=== PATIENT | female | born 1985 | race Caucasian/White ===

== ENCOUNTER → 2016-08-15 | Outpatient (CLI) | payer OTHER ==
[2016-08-15 16:51] LABS: ESTRADIOL 282.3 PG/ML; PROGESTERONE 15.5 NG/ML
== END | disposition home or self-care (01) ==
LOC: M WUC 15:06
PROVIDERS: ATTEND Obstetrics & Gynecology Reproductive Endocrinology
DX: E28.9 Ovarian dysfunction, unspecified (principal)

== ENCOUNTER → 2016-08-18 | Outpatient (CLI) | payer OTHER ==
[2016-08-18 11:48] LABS: ESTRADIOL 242.9 PG/ML; PROGESTERONE 9.9 NG/ML
== END ==
LOC: M LAB 06:39
PROVIDERS: ATTEND Obstetrics & Gynecology Reproductive Endocrinology
DX: E28.9 Ovarian dysfunction, unspecified (principal)

== ENCOUNTER → 2018-10-05 | Outpatient (CLI) | payer BC ==
[2018-10-05 17:30] LABS: APPEARANCE, URINE CLEAR (CLEAR); BACTERIA, URINE AUTO NEGATIVE (NEGATIVE); BILIRUBIN, URINE AUTO NEGATIVE (NEGATIVE); BLOOD, URINE BLOOD NEGATIVE (NEGATIVE); COLOR, URINE YELLOW (YELLOW); GLUCOSE, URINE (UA) AUTO NEGATIVE (NEGATIVE); KETONE, URINE AUTO NEGATIVE (NEGATIVE); LEUKOCYTE ESTERASE, URINE AUTO NEGATIVE (NEGATIVE); NITRITE, URINE AUTO NEGATIVE (NEGATIVE); PROTEIN, URINE AUTO NEGATIVE (NEGATIVE); RBC, URINE AUTO 2 /HPF (0-3); SPECIFIC GRAVITY URINE AUTO 1.012 (1.002-1.035); SQUAMOUS EPITHELIAL CELL UR AU 1 /HPF (0-6); UROBILINOGEN, URINE AUTO 0.2 mg/dL (0.0-2.0); WBC, URINE AUTO 1 /HPF (0-3)
[2018-10-05 17:49] LABS: ALBUMIN 4.5 GM/DL (3.2-5.2); ALT/SGPT 27 U/L (12-78); AMYLASE 40 U/L (25-115); BILIRUBIN,TOTAL 0.5 MG/DL (0.2-1.0); BLOOD UREA NITROGEN 12 MG/DL (7-18); CALCIUM LEVEL 8.7 MG/DL (8.5-10.1); CARBON DIOXIDE LEVEL 28 MEQ/L (21-32); CHLORIDE LEVEL 107 MEQ/L (98-107); CHOLESTEROL LEVEL 187 MG/DL (<200); CHOLESTEROL RISK RATIO 3.666 (<5); CREATININE FOR GFR 0.66 MG/DL (0.55-1.30); GLOMERULAR FILTRATION RATE > 60.0 (>60); GLUCOSE, FASTING 82 MG/DL (70-100); HCG, SERUM QUANTITATIVE < 1.0 MIU/ML; HDL CHOLESTEROL 51 MG/DL (>40); LDL CHOLESTEROL 122 MG/DL (<100); LIPASE 121 U/L (73-393); NON-HDL-C 136 MG/DL; POTASSIUM SERUM 4.1 MEQ/L (3.5-5.1); SODIUM LEVEL 140 MEQ/L (136-145); TOTAL PROTEIN 7.9 GM/DL (6.4-8.2); TRIGLYCERIDES LEVEL 69 MG/DL (<150)
[2018-10-05 17:54] LABS: BASO # 0.1 10^3/uL (0.0-0.2); BASO % 0.8 % (0.0-1.0); EOS # 0.1 10^3/uL (0.0-0.50); EOS % 1.3 % (0.0-3.0); HEMOGLOBIN 13.3 g/dl (12.0-15.5); LYMPH # 1.3 10^3/uL (1.5-4.5); LYMPH % 21.1 % (24.0-44.0); MEAN CORPUSCULAR HGB CONC 33.3 g/dl (32.0-36.5); MEAN CORPUSCULAR VOLUME 87.1 fl (80.0-96.0); MONO # 0.4 10^3/uL (0.0-0.8); MONO % 6.9 % (0.0-5.0); NEUTROPHILS # 4.4 10^3/uL (1.8-7.7); NEUTROPHILS % 69.7 % (36.0-66.0); PLATELET COUNT, AUTOMATED 209 10^3/uL (150-450); RED BLOOD COUNT 4.59 10^6/uL (4.00-5.40); WHITE BLOOD COUNT 6.4 10^3/uL (4.0-10.0)
== END ==
LOC: M LAB 16:35
PROVIDERS: ATTEND Nurse Practitioner Family
DX: R10.84 Generalized abdominal pain (principal); Z13.220 Encounter for screening for lipoid disorders

== ENCOUNTER → 2018-10-11 | Outpatient (CLI) | payer BC ==
--- NOTE | 2018-10-12 15:01 | REP ---
Clinical: Generalized abdominal pain. Technique: Axial noncontrast images from the lung bases to the pubic symphysis with coronal and sagittal re-formations. Comparison: None. Findings: Lung bases are clear. Liver, spleen, pancreas, gallbladder, bilateral adrenal glands and kidneys are normal for noncontrast evaluation. The enteric system is without obstruction or acute inflammatory process. Normal terminal ileum and appendix identified in the right lower quadrant. Pelvis demonstrates normal bladder and age-appropriate uterus/adnexa. A 1.5 mm calculus is identified in the left hemipelvis which likely represents small phlebolith but nonobstructed ureteral calculus cannot be excluded and should be correlated with physical examination and urinalysis. No ascites. No free air. No adenopathy. Abdominal aorta without aneurysm. Musculoskeletal structures are intact. Impression: 1. No acute abdominopelvic pathology appreciated. 2. 1.5 mm calculus in the left ern[place] pelvis in the region of the distal ureter/UVJ likely represents phlebolith based on the lack of hydroureteronephrosis and symptoms, but correlation with urinalysis and physical examination may be warranted. Electronically Signed by Ubaldo Rai MD 10/12/2018 02:53 P
== END ==
LOC: M RAD 16:01
PROVIDERS: ATTEND Nurse Practitioner Family
DX: R10.84 Generalized abdominal pain (principal)

== ENCOUNTER → 2019-05-04 | Outpatient (CLI) | payer BC ==
--- NOTE | 2019-05-04 08:23 | REP ---
Clinical: Right upper quadrant pain. Technique: Real time mccoy scale ultrasound examination using curved array transducer. Findings: Liver and pancreas are normal in contour, size, echogenicity without focal hepatic or pancreatic lesion identified. Gallbladder is without wall thickening or pericholecystic fluid. A small amount of layering sludge cannot be excluded. No biliary ductal dilatation is appreciated and the common bile duct measures 5.7 mm diameter. The right kidney is normal in reniform shape without hydronephrosis and measures 11.0 x 5.9 x 5.7 cm. No ascites in the visualized right upper quadrant. Impression: 1. Essentially unremarkable examination. Small amount of layering sludge within the gallbladder cannot be excluded. Electronically Signed by Ubaldo Rai MD 05/04/2019 08:14 A
== END ==
LOC: M RAD 06:30
PROVIDERS: ATTEND Internal Medicine Gastroenterology
DX: R10.9 Unspecified abdominal pain (principal)

== ENCOUNTER → 2019-05-12 | Outpatient (CLI) | payer BC ==
--- NOTE | 2019-05-12 10:56 | REP ---
Hepatobiliary scan and gallbladder ejection fraction: History: Abdomen pain Technique: 6.6 mCi of technetium-99m mebrofenin was injected and sequential anterior images are acquired. 65 minutes after the mebrofenin injection, the patient consumed 8 ounces Ensure and an additional 60 minutes of imaging was acquired. Regions of interest are plotted around the gallbladder. Findings: The initial hepatocellular parenchymal uptake phase is normal and homogeneous. Intra- and extra-hepatic bile ducts are labeled by the 10 -minute image. The gallbladder is first labeled on the 10 -minute image. There is normal washout from the liver parenchyma into the gallbladder and small intestine on subsequent images. The gallbladder ejection fraction is 56 %. Values greater than 35 % are considered normal with this technique. Impression: Normal hepatobiliary scan and normal gallbladder ejection fraction. Electronically Signed by Kristopher Odom MD 05/12/2019 10:47 A
== END ==
LOC: M RAD 07:54
PROVIDERS: ATTEND Internal Medicine Gastroenterology
DX: R10.11 Right upper quadrant pain (principal)
CPT/HCPCS: 78227; A9537; J2805

== ENCOUNTER → 2020-03-01 | Outpatient (CLI) | payer BC | LOC: M WUC 08:23 | PROVIDERS: ATTEND Obstetrics & Gynecology | DX: N91.2 Amenorrhea, unspecified (principal) ==

== ENCOUNTER 2020-03-31 11:41 | Emergency (ER) | payer OTHER, BC ==
[~2020-03-31] VITALS: Ht 162.6 cm; Wt 106.8 kg
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
[2020-03-31 14:09] VITALS: BP 198/84
== END 2020-03-31 14:10 | disposition home or self-care (01) ==
LOC: M ED 11:41
DX: O9A.211 Injury, poisoning and certain other consequences of external causes complicating pregnancy, first trimester (principal); R10.814 Left lower quadrant abdominal tenderness; R51 Headache; V43.52XA Car driver injured in collision with other type car in traffic accident, initial encounter; Y92.410 Unspecified street and highway as the place of occurrence of the external cause; Z3A.08 8 weeks gestation of pregnancy; Z88.7 Allergy status to serum and vaccine; Z91.013 Allergy to seafood; Z88.8 Allergy status to other drugs, medicaments and biological substances

== ENCOUNTER 2021-03-10 18:39 | Emergency (ER) | payer BC, OTHER ==
[~2021-03-10] VITALS: Ht 162.6 cm; Wt 105.5 kg
[2021-03-10] MEDS ORDERED: VITMTA PO (18:45)
[2021-03-10] MEDS ORDERED: GNP10CAP PO (18:46)
[2021-03-10 21:45] VITALS: BP 155/98
[2021-03-10] MEDS ORDERED: ACETAMINOPHEN 325 MG TAB PO ONE (21:55)
== END 2021-03-10 22:21 | disposition home or self-care (01) ==
LOC: M ED 18:39
DX: U07.1 COVID-19 (principal); Z88.7 Allergy status to serum and vaccine; Z88.8 Allergy status to other drugs, medicaments and biological substances; Z91.013 Allergy to seafood; Z79.899 Other long term (current) drug therapy

== ENCOUNTER 2021-03-10 21:37 | Outpatient (CLI) | payer BC ==
[~2021-03-10] VITALS: Ht 162.6 cm; Wt 116.3 kg
[~2021-03-10 21:37] MED LIST: GNP10CAP PO; VITMTA PO
[2021-03-10] MEDS ORDERED: ALBUTEROL SULFATE 2.5 MG/0.5 ML INH NEB SOLN INH PRN (21:40)
[2021-03-10] MEDS ORDERED: NS 1,000 ML IV SCH (21:40)
[2021-03-10] MEDS ORDERED: ALBUTEROL 90 MCG/ACT 8GM HFA INHALER INH PRN (21:40)
[2021-03-10] MEDS ORDERED: EPINEPHrine INJ 1 MG/ML 1ML AMP IM PRN (21:40)
[2021-03-10] MEDS ORDERED: diphenhydrAMINE 50MG/ML VIAL (J1200) IV PRN (21:40)
[2021-03-10] MEDS ORDERED: methylPREDNISolone 125MG 2ML VIAL IV PRN (21:40)
--- NOTE | 2021-03-10 22:14 | IPNPDOC ---
Subjective Date Seen The patient was seen on 03/10/21. Subjective Chief Complaint/HPI Mrs. Kohler is a 35-year-old female with obesity and history of preeclampsia who is here for symptoms of Covid. She is not vaccinated due to her recent . 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 Her symptoms first started last Thursday or Thursday. She had dyspnea on exertion, cough, and a headache. On Thursday she started to have fever and chills which resolved. She denies any loss in taste, abdominal pain, diarrhea, dysuria, rashes, or neuropathy. Of note, her 5-month-old baby tested positive for Covid. She went to urgent care yesterday and she tested positive for Covid. She comes in today for monoclonal antibodies. On exam she appears comfortable in the room. She saturates 98% on room air and 94% to 95% on exertion. She is a candidate for monoclonal antibodies. We discussed the risk and benefit of mon oclonal antibodies. The ED physician did contact the administrative executive about breast- feeding and monoclonal antibodies. Some monoclonal antibody does cross the breastmilk. There is no substantial study for harm or benefit of breast-feeding after monoclonal antibodies. She was given the option of pumping and dumping. Patient agreed to monoclonal antibodies. Past medical history 1. Prehypertension 2. History of preeclampsia Past surgical history 1. 2. [place] tooth removal Social history Smoking: Denies ever smoking Alcohol: Occasionally drinks Recreational drug use: Denies Family history Father: History of COPD and hypertension Mother: History of COPD, hypertension, and prediabetes Constitutional: Reports: Fever, Malaise Eyes: Denies: Vision change ENT: Reports: Head Aches Skin: Denies: Rash Pulmonary: Reports: Dyspnea (On exertion), Cough Cardiovascular: Denies: Chest Pain Gastrointestinal: Denies: Abdominal Pain, Diarrhea Genitourinary: Denies: Dysuria Hematologic: Denies: Bruising Neurological: Denies: Numbness Psych: Denies: Anxiety, Depression Objective Physical Examination General Exam: Positive: Alert, Cooperative, No Acute Distress Eye Exam: Positive: EOMI; Negative: Sclera icteric ENT Exam: Positive: Atraumatic Neck Exam: Positive: Supple Chest Exam: Positive: Clear to auscultation; Negative: Rales, Rhonchi, Wheezing Heart Exam: Positive: Rate Normal, Regular Rhythm Abdomen Exam: Positive: Normal bowel sounds Extremity Exam: Negative: Edema Neuro Exam: Positive: Normal Speech Psych Exam: Positive: Mental status NL, Mood NL Assessment /Plan Plan/VTE VTE Prophylaxis Ordered?: No (Outpatient) Plan 1. Covid infection Patient is not hypoxic at rest or exertion Patient has risk factors and would benefit from monoclonal antibodies Discussed the risks and benefits of monoclonal antibodies. She is agreeable Patient will receive monoclonal antibodies Patient should follow-up with her PCP after monoclonal antibodies ADRIEN ACUÑA DO Mar 10, 2021 22:14
[2021-03-10 22:15] VITALS: BP 139/84
[2021-03-10] MEDS ORDERED: CASIRIVIMAB/IMDEVIMAB 1,200 MG in NS 250 ML IV ONE (22:30)
[2021-03-10] MEDS ORDERED: BENZONATATE 100 MG CAP PO ONE (23:25)
[2021-03-10 23:26] VITALS: BP 121/70
[2021-03-11 00:10] VITALS: BP 120/72
[2021-03-11 01:02] VITALS: BP 114/68
== END 2021-03-11 01:40 | disposition home or self-care (01) ==
LOC: M OPCLI4 21:37 → M 4MAIN 21:37 → M OPCLI4 03-11 01:40
PROVIDERS: ATTEND Physician Assistant
DX: U07.1 COVID-19 (principal); Z88.8 Allergy status to other drugs, medicaments and biological substances